=== PATIENT | female | born 1935 | race Hispanic/Latino ===

== ENCOUNTER 2022-03-10 12:07 | Observation (INO) | payer OTHER ==
[~2022-03-10] VITALS: Ht 157.5 cm; Wt 71.1 kg
[2022-03-10] MEDS ORDERED: CYCLOBENZAPRINE HCL 10 MG TABLET PO ONE (13:30)
[2022-03-10] MEDS ORDERED: CYCLOBENZAPRINE HCL 10 MG TABLET ONE (13:32)
[2022-03-10] MEDS ORDERED: ASPIRIN 325MG TAB ONE (15:09)
[2022-03-10] MEDS ORDERED: ASPIRIN 81MG CHEW TAB PO ONE (15:30)
[2022-03-10 15:47] LABS: BASOPHILS % (AUTO) 0.7 % (0.0-5.0); EOSINOPHILS % (AUTO) 0.5 % (0.0-8.0); HEMATOCRIT 40.1 % (36-48); LYMPHOCYTES % (AUTO) 25.4 % (21.0-51.0); MEAN CORPUSCULAR HEMOGLOBIN 29.9 pg (27.0-33.0); MEAN CORPUSCULAR HGB CONC 34.4 g/dL (32.0-36.0); MONOCYTES % (AUTO) 6.1 % (3.0-13.0); PLATELET COUNT (AUTO) 248 K/uL (130-400); RED BLOOD CELL COUNT(AUTO) 4.61 MIL/uL (4.00-5.50); RED CELL DISTRIBUTION WIDTH 15.2 % (11.0-15.5); WHITE BLOOD COUNT (AUTO) 7.5 K/uL (4.8-10.8)
[2022-03-10 15:59] LABS: CREATININE 0.9 mg/dL (0.5-1.5); POTASSIUM 4.6 mmol/L (3.5-5.1)
[2022-03-10 16:08] LABS: ALBUMIN 3.6 g/dL (3.5-5.0); TOTAL PROTEIN, SERUM 7.5 g/dL (6.0-8.3)
[2022-03-10 16:17] LABS: APPEARANCE,URINE CLEAR (CLEAR); BILIRUBIN,URINE NEGATIVE (NEGATIVE); COLOR,URINE COLORLESS (YELLOW); GLUCOSE, URINE (UA) NEGATIVE (NEGATIVE); KETONES,URINE NEGATIVE (NEGATIVE); LEUKOCYTE ESTERASE ,URINE NEGATIVE Leu/uL (NEGATIVE); NITRATE,URINE NEGATIVE (NEGATIVE); OCCULT BLOOD,URINE NEGATIVE (NEGATIVE); PROTEIN,URINE NEGATIVE (NEGATIVE); UROBILINOGEN,URINE 0.2 mg/dL (0.2-1.0)
[2022-03-10] MEDS ORDERED: LABETALOL 20MG SYG IV ONE (17:47)
[2022-03-10] MEDS ORDERED: ACETAMINOPHEN 325 MG TAB PO PRN ×2 (18:00)
[2022-03-10] MEDS ORDERED: DIPHENHYDRAMINE HCL 25 MG CAPSULE PO PRN (18:00)
[2022-03-10] MEDS ORDERED: DiphenhydrAMINE HCL 50 MG/ML VIAL IV PRN (18:00)
[2022-03-10] MEDS ORDERED: GUAIFENESIN-DM 200/20 MG 10 ML PO PRN (18:00)
[2022-03-10] MEDS ORDERED: LACTULOSE 20 GM/30 ML UDCUP PO PRN (18:00)
[2022-03-10] MEDS ORDERED: NITROGLYCERIN 0.4 MG SL TAB SL PRN (18:00)
[2022-03-10] MEDS ORDERED: ONDANSETRON 4MG INJ IV PRN (18:00)
[2022-03-10] MEDS ORDERED: MAG/ALUM/SIMETH 30 ML UDCUP PO PRN (18:00)
[2022-03-10] MEDS ORDERED: LABETALOL 20MG VIAL IV PRN (18:00)
[2022-03-10] MEDS: HEPARIN 5,000 UNIT VIAL SQ SCH (20:50)
[2022-03-10] MEDS: FAMOTIDINE 20MG TAB PO SCH (20:50)
[2022-03-10] MEDS ORDERED: FAMOTIDINE 20MG VIAL IV SCH (21:00)
[2022-03-10] MEDS ORDERED: MAGNESIUM 2GM PREMIX 50ML 50 ML IV PRN (22:00)
[2022-03-10] MEDS ORDERED: POTASSIUM CHLORIDE 20MEQ/100ML 100 ML IV PRN (22:00)
[2022-03-10] MEDS ORDERED: KCL 20 MEQ ERTAB PO PRN (22:00)
[2022-03-10] MEDS ORDERED: LIDOCAINE HCL-MPF 1% 2ML VIAL IV PRN (22:00)
[2022-03-10] MEDS ORDERED: POTASSIUM CHLORIDE 10% ELIXIR 20 MEQ/15 ML UDCUP PO PRN (22:00)
[2022-03-10 22:50] VITALS: BP 122/56
[2022-03-11] VITALS (7 sets, daily range): BP systolic 122–166; BP diastolic 44–71
[2022-03-11 05:07] LABS: BASOPHILS % (AUTO) 0.8 % (0.0-5.0); EOSINOPHILS % (AUTO) 3.1 % (0.0-8.0); HEMATOCRIT 36.6 % (36-48); LYMPHOCYTES % (AUTO) 31.3 % (21.0-51.0); MEAN CORPUSCULAR HEMOGLOBIN 29.7 pg (27.0-33.0); MEAN CORPUSCULAR HGB CONC 33.6 g/dL (32.0-36.0); MEAN CORPUSCULAR VOLUME 88.4 fL (79-99); MONOCYTES % (AUTO) 9.9 % (3.0-13.0); NEUTROPHILS % (AUTO) 54.6 % (40.0-77.0); PLATELET COUNT (AUTO) 236 K/uL (130-400); RED BLOOD CELL COUNT(AUTO) 4.14 MIL/uL (4.00-5.50); RED CELL DISTRIBUTION WIDTH 15.2 % (11.0-15.5); WHITE BLOOD COUNT (AUTO) 6.2 K/uL (4.8-10.8)
[2022-03-11 05:16] LABS: CREATININE 1.1 mg/dL (0.5-1.5); PHOSPHORUS 3.5 mg/dL (2.5-4.9); POTASSIUM 3.8 mmol/L (3.5-5.1)
[2022-03-11] MEDS: LISINOPRIL 40 MG TABLET PO SCH (09:18)
[2022-03-11] MEDS: HEPARIN 5,000 UNIT VIAL SQ SCH ×3 (09:25→21:24)
[2022-03-11] MEDS: ASPIRIN 81 MG EC TAB PO SCH (12:39)
[2022-03-11] MEDS ORDERED: ATORVASTATIN 40 MG TABLET PO SCH (21:00)
[2022-03-11] MEDS: FAMOTIDINE 20MG TAB PO SCH (21:17)
[2022-03-12] VITALS: BP 146/62
[2022-03-12 04:00] VITALS: BP 156/68
[2022-03-12 05:24] LABS: BASOPHILS % (AUTO) 0.7 % (0.0-5.0); HEMATOCRIT 36.1 % (36-48); LYMPHOCYTES % (AUTO) 36.6 % (21.0-51.0); MEAN CORPUSCULAR HEMOGLOBIN 29.7 pg (27.0-33.0); MEAN CORPUSCULAR HGB CONC 33.2 g/dL (32.0-36.0); MEAN CORPUSCULAR VOLUME 89.4 fL (79-99); MONOCYTES % (AUTO) 9.5 % (3.0-13.0); PLATELET COUNT (AUTO) 238 K/uL (130-400); RED BLOOD CELL COUNT(AUTO) 4.04 MIL/uL (4.00-5.50); RED CELL DISTRIBUTION WIDTH 15.4 % (11.0-15.5); WHITE BLOOD COUNT (AUTO) 5.7 K/uL (4.8-10.8)
[2022-03-12 05:53] LABS: CREATININE 1.1 mg/dL (0.5-1.5); POTASSIUM 3.8 mmol/L (3.5-5.1); THYROID STIMULATING HORMONE 3.25 uIU/mL (0.36-3.74)
[2022-03-12 07:20] VITALS: BP 159/54
[2022-03-12] MEDS ORDERED: AEC81 PO (07:56)
[2022-03-12] MEDS ORDERED: LISI40TA9 PO (07:56)
[2022-03-12] MEDS: ASPIRIN 81 MG EC TAB PO SCH (09:36)
[2022-03-12] MEDS: LISINOPRIL 40 MG TABLET PO SCH (09:36)
[2022-03-12 12:08] VITALS: BP 154/57
== END 2022-03-12 15:00 | disposition home or self-care (01) ==
LOC: EDH 12:07 → EDHIP 17:37 → 3DH 22:46
PROVIDERS: ADMIT Internal Medicine; ATTEND Internal Medicine
DX: I21.4 Non-ST elevation (NSTEMI) myocardial infarction (principal); R77.8 Other specified abnormalities of plasma proteins; I10 Essential (primary) hypertension; M41.9 Scoliosis, unspecified; M54.9 Dorsalgia, unspecified; Z85.3 Personal history of malignant neoplasm of breast; Z90.11 Acquired absence of right breast and nipple; Z92.21 Personal history of antineoplastic chemotherapy; Z92.3 Personal history of irradiation; Z98.41 Cataract extraction status, right eye; Z79.899 Other long term (current) drug therapy; Z98.890 Other specified postprocedural states; V89.2XXA Person injured in unspecified motor-vehicle accident, traffic, initial encounter; Y92.410 Unspecified street and highway as the place of occurrence of the external cause; Y93.89 Activity, other specified; Y99.8 Other external cause status
CPT/HCPCS: 96374; 96372 ×2; 99285; 84484 ×3; 80053; 85025 ×3; 81003; 36415 ×3; 71045; 70450; 72125; 72131; 93005 ×2; 83735; 84100; 80048 ×2; 97161; 97039; 97116; 97530; 84443; 80061; G0378 ×44; J1644 ×4; G8980; G8983

== ENCOUNTER 2022-03-30 04:43 | Emergency (ER) | payer OTHER ==
[~2022-03-30] VITALS: Ht 157.5 cm; Wt 70.3 kg
[~2022-03-30 04:43] MED LIST: AEC81 PO; LISI40TA9 PO
[2022-03-30 05:51] LABS: BASOPHILS % (AUTO) 0.6 % (0.0-5.0); HEMATOCRIT 37.4 % (36-48); LYMPHOCYTES % (AUTO) 20.2 % (21.0-51.0); MEAN CORPUSCULAR HGB CONC 34.8 g/dL (32.0-36.0); MEAN CORPUSCULAR VOLUME 86.4 fL (79-99); MONOCYTES % (AUTO) 9.1 % (3.0-13.0); NEUTROPHILS % (AUTO) 68.8 % (40.0-77.0); PLATELET COUNT (AUTO) 240 K/uL (130-400); RED BLOOD CELL COUNT(AUTO) 4.33 MIL/uL (4.00-5.50); RED CELL DISTRIBUTION WIDTH 14.3 % (11.0-15.5)
[2022-03-30] MEDS ORDERED: CLONIDINE HCL 0.2 MG TABLET PO ONE (06:00)
[2022-03-30 06:09] LABS: ALBUMIN 3.5 g/dL (3.5-5.0); CREATININE 1.1 mg/dL (0.5-1.5); TOTAL PROTEIN, SERUM 7.2 g/dL (6.0-8.3)
[2022-03-30] MEDS ORDERED: CLONIDINE HCL 0.1 MG TABLET ONE (06:10)
[2022-03-30] MEDS ORDERED: CLON0.1T PO (07:05)
[2022-03-30 07:20] VITALS: BP 154/53
== END 2022-03-30 07:30 | disposition home or self-care (01) ==
LOC: EDH 04:43
DX: I10 Essential (primary) hypertension (principal); Z88.0 Allergy status to penicillin; Z88.5 Allergy status to narcotic agent; Z79.899 Other long term (current) drug therapy; Z79.82 Long term (current) use of aspirin; Z88.8 Allergy status to other drugs, medicaments and biological substances; Z98.890 Other specified postprocedural states
CPT/HCPCS: 36415; 80053; 84484; 85025; 93005

== ENCOUNTER → 2022-04-01 | Outpatient (CLI) | payer OTHER ==
[~2022-04-01] MED LIST changes: +CLON0.1T PO
== END | disposition home or self-care (01) ==
LOC: SHCH 07:52
PROVIDERS: ATTEND Internal Medicine Cardiovascular Disease
DX: I35.1 Nonrheumatic aortic (valve) insufficiency (principal); I11.9 Hypertensive heart disease without heart failure; I31.39 Other pericardial effusion (noninflammatory)
CPT/HCPCS: 93306

== ENCOUNTER 2022-04-10 20:59 | Emergency (ER) | payer OTHER ==
[~2022-04-10] VITALS: Ht 157.5 cm; Wt 69.9 kg
[2022-04-10 22:07] VITALS: BP 154/54
[2022-04-18] MEDS ORDERED: HYDR12.54 PO (10:23)
== END 2022-04-10 22:09 | disposition home or self-care (01) ==
LOC: EDH 20:59
DX: I10 Essential (primary) hypertension (principal); Z79.82 Long term (current) use of aspirin; Z88.0 Allergy status to penicillin; Z88.5 Allergy status to narcotic agent
CPT/HCPCS: 99281

== ENCOUNTER 2022-04-13 00:58 | Emergency (ER) | payer OTHER ==
[~2022-04-13] VITALS: Ht 157.5 cm; Wt 69.9 kg
[2022-04-13] MEDS ORDERED: LABETALOL 20MG VIAL IV ONE (01:30)
[2022-04-13] MEDS ORDERED: HYDRALAZINE 20MG/ML VIAL ONE (02:20)
[2022-04-13] MEDS ORDERED: AMLO5TAB5 PO (02:26)
[2022-04-13] MEDS ORDERED: HYDRALAZINE 20MG/ML VIAL IV ONE (02:30)
[2022-04-13 02:39] VITALS: BP 139/54
[2022-04-14] MEDS ORDERED: NITR100C4 PO (17:36)
[2022-04-18] MEDS ORDERED: HYDR12.54 PO (10:23)
== END 2022-04-13 02:56 | disposition home or self-care (01) ==
LOC: EDH 00:58
DX: I10 Essential (primary) hypertension (principal); Z98.890 Other specified postprocedural states; Z88.0 Allergy status to penicillin; Z88.5 Allergy status to narcotic agent; Z88.8 Allergy status to other drugs, medicaments and biological substances; Z79.899 Other long term (current) drug therapy; Z79.82 Long term (current) use of aspirin
CPT/HCPCS: 99283; 96374; J0360

== ENCOUNTER 2022-04-14 12:04 | Emergency (ER) | payer OTHER ==
[~2022-04-14 12:04] MED LIST changes: +AMLO5TAB5 PO
[2022-04-14 13:31] LABS: APPEARANCE,URINE CLEAR (CLEAR); BILIRUBIN,URINE NEGATIVE (NEGATIVE); COLOR,URINE YELLOW (YELLOW); GLUCOSE, URINE (UA) NEGATIVE (NEGATIVE); KETONES,URINE NEGATIVE (NEGATIVE); LEUKOCYTE ESTERASE ,URINE 75 Leu/uL (NEGATIVE); NITRATE,URINE NEGATIVE (NEGATIVE); OCCULT BLOOD,URINE NEGATIVE (NEGATIVE); PROTEIN,URINE 20 mg/dL (NEGATIVE); UROBILINOGEN,URINE 0.2 mg/dL (0.2-1.0)
[2022-04-14 13:34] LABS: BACTERIA,URINE RARE /HPF (None Seen); MUCUS,URINE RARE LPF (None Seen); SQUAMOUS EPITHELIAL CELL,UR RARE /HPF (0-2)
[2022-04-14 13:51] LABS: BASOPHILS % (AUTO) 0.2 % (0.0-5.0); EOSINOPHILS % (AUTO) 0.2 % (0.0-8.0); HEMATOCRIT 37.7 % (36-48); LYMPHOCYTES % (AUTO) 8.7 % (21.0-51.0); MEAN CORPUSCULAR HEMOGLOBIN 29.5 pg (27.0-33.0); MEAN CORPUSCULAR HGB CONC 34.5 g/dL (32.0-36.0); MEAN CORPUSCULAR VOLUME 85.7 fL (79-99); MONOCYTES % (AUTO) 4.7 % (3.0-13.0); NEUTROPHILS % (AUTO) 85.9 % (40.0-77.0); PLATELET COUNT (AUTO) 254 K/uL (130-400); WHITE BLOOD COUNT (AUTO) 9.4 K/uL (4.8-10.8)
[2022-04-14 14:18] LABS: ALBUMIN 3.6 g/dL (3.5-5.0); CREATININE 1.3 mg/dL (0.5-1.5); MAGNESIUM 1.6 mg/dL (1.80-2.40); POTASSIUM 4.3 mmol/L (3.5-5.1); TOTAL PROTEIN, SERUM 7.3 g/dL (6.0-8.3)
[2022-04-14 14:32] LABS: B-TYPE NATRIURETIC PEPTIDE 9 pg/mL (0-100)
[2022-04-14] MEDS ORDERED: 0.9%NACL 1000ML 1,000 ML IV ONE (15:00)
[2022-04-14 17:31] VITALS: BP 141/55
[2022-04-14] MEDS ORDERED: NITR100C4 PO (17:36)
[2022-04-18] MEDS ORDERED: HYDR12.54 PO (10:23)
== END 2022-04-14 17:50 | disposition home or self-care (01) ==
LOC: EDH 12:04
DX: E86.0 Dehydration (principal); N39.0 Urinary tract infection, site not specified; I10 Essential (primary) hypertension; Z88.0 Allergy status to penicillin; Z88.5 Allergy status to narcotic agent; Z88.8 Allergy status to other drugs, medicaments and biological substances; Z79.899 Other long term (current) drug therapy; Z79.82 Long term (current) use of aspirin; Z98.890 Other specified postprocedural states
CPT/HCPCS: 99285; 96360; 70450; 71045; 83735; 84484; 80053; 83880; 85025; 87088; 81001; 36415; 93005; J7030

== ENCOUNTER → 2022-04-17 | Outpatient (CLI) | payer OTHER ==
[~2022-04-17] MED LIST changes: +HYDR12.54 PO; +NITR100C4 PO
[2022-04-17 12:54] LABS: POTASSIUM 4.3 mmol/L (3.5-5.1); THYROID STIMULATING HORMONE 2.67 uIU/mL (0.36-3.74)
== END | disposition home or self-care (01) ==
LOC: LAB 11:30
PROVIDERS: ATTEND Internal Medicine
DX: I16.0 Hypertensive urgency (principal)
CPT/HCPCS: 36415; 80048; 82088; 83835; 84244; 84443

== ENCOUNTER → 2022-07-12 | Outpatient (CLI) | payer OTHER ==
[~2022-07-12] MED LIST changes: -AEC81 PO; -CLON0.1T PO; -HYDR12.54 PO; +LISI20TA24 PO; -LISI40TA9 PO; -NITR100C4 PO; +PANT40TA PO
[2022-07-12 16:32] LABS: CREATININE 1.6 mg/dL (0.5-1.5); POTASSIUM 4.5 mmol/L (3.5-5.1)
== END | disposition home or self-care (01) ==
LOC: LAB 14:07
PROVIDERS: ATTEND Internal Medicine Cardiovascular Disease
DX: I10 Essential (primary) hypertension (principal)
CPT/HCPCS: 36415; 80048